=== PATIENT | male | born 1945 | race Caucasian/White ===

== ENCOUNTER 2021-08-02 07:22 | Inpatient (IN) | payer MEDICARE ==
[~2021-08-02] VITALS: Ht 167.6 cm; Wt 53.1 kg
--- NOTE | 2021-08-02 07:22 | NUR ---
PT BIBRA 79 FROM [facility] C/O SOB, LOW O2 SAT AT 80% RA AND LOW BLOOD SUGAR < 2OMG PER EMS. PT IS AAOX0, NOTED RESPIRATORY DISTRESS ON NON RB AT 15LPM, HOOKED TO MANAGER COMMUNICATION, KEPT RESTED AND COMFORTABLE. WILL CONTINUE TO MONITOR.
--- NOTE | 2021-08-02 07:25 | NUR ---
AT BEDSIDE FOR EVAL.
--- NOTE | 2021-08-02 07:30 | NUR ---
RT AT BEDSIDE FOR POSSIBLE INTUBATION.
--- NOTE | 2021-08-02 07:33 | NUR ---
IO ACCESS ESTABLISHED D50 GIVEN ORDERED BY .
[2021-08-02] MEDS ORDERED: DEXTROSE 50%-WATER 50 ML DISP.SYRIN ONE ×3 (07:36→07:56)
--- NOTE | 2021-08-02 07:38 | NUR ---
2ND D50 GIVEN ORDERED BY .
[2021-08-02] MEDS ORDERED: MORPHINE SULFATE INJ 2 MG/ML DISP.SYRIN ONE (07:45)
--- NOTE | 2021-08-02 07:55 | NUR ---
Cassi MORSE IV ACCESS ESTABLISHED BY .
--- NOTE | 2021-08-02 08:05 | NUR ---
3RD D50 GIVEN ORDERED BY .
[2021-08-02] MEDS ORDERED: SODIUM BICARBONATE SYR 50 MEQ/50 ML DISP.SYRIN ONE (08:11)
--- NOTE | 2021-08-02 08:14 | NUR ---
SODIUM BICARB 50mEq GIVEN ORDERED BY
[2021-08-02] MEDS ORDERED: IV NS 0.9% 1,000 ML BAG IV ONE (08:30)
[2021-08-02] MEDS ORDERED: SODIUM BICARBONATE SYR 50 MEQ/50 ML DISP.SYRIN IV ONE (08:30)
[2021-08-02] MEDS ORDERED: DEXTROSE 50%-WATER 50 ML DISP.SYRIN IV ONE ×3 (08:30)
[2021-08-02] MEDS ORDERED: MORPHINE SULFATE INJ 2 MG/ML DISP.SYRIN IV ONE (08:30)
[2021-08-02 08:34] LABS: BASOPHILS % (AUTO) 0.1 % (0.0-2.0); EOSINOPHILS % (AUTO) 0.2 % (0.0-6.0); HEMATOCRIT 21 % (39-51); HEMOGLOBIN 7.1 g/dL (13.5-17.5); LYMPHOCYTES # (AUTO) 0.3 K/uL (0.8-4.8); LYMPHOCYTES % (AUTO) 8.4 % (20.0-44.0); MEAN CORPUSCULAR HGB CONC 33 g/dl (31.0-36.0); MEAN CORPUSCULAR VOLUME 93 fL (80-96); MONOCYTES # (AUTO) 0.1 K/uL (0.1-1.30); MONOCYTES % (AUTO) 2.3 % (2.0-12.0); NEUTROPHILS # (AUTO) 3.6 K/uL (1.8-8.9); PLATELET COUNT (AUTO) 76 K/uL (150-450); RED BLOOD CELL COUNT(AUTO) 2.31 MIL/uL (4.5-6.0)
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
[2021-08-02 08:58] VITALS: BP 133/96
[2021-08-02 09:04] LABS: ALANINE AMINOTRANSFERASE 237 U/L (12-78); ASPARTATE AMINOTRANSFERASE 614 U/L (15-37); BILIRUBIN,DIRECT 0.4 mg/dL (0.0-0.2); BILIRUBIN,TOTAL 0.7 mg/dL (0.2-1.0); CALCIUM, SERUM 6.7 mg/dL (8.5-10.1); CARBON DIOXIDE 24 mmol/L (21-32); CHLORIDE 102 mmol/L (98-107); CREATININE 1.2 mg/dL (0.6-1.3); POTASSIUM 4.3 mmol/L (3.5-5.1); SODIUM SERUM 133 mmol/L (136-145); TOTAL PROTEIN, SERUM 3.3 g/dL (6.4-8.2); UREA NITROGEN, BLOOD 60 mg/dL (7-18)
--- NOTE | 2021-08-02 09:20 | NUR ---
RN NOTE PATIENT RECEIVED FROM ER, WILL CONTINUE PLAN OF CARE.
[2021-08-02 09:23] LABS: ALKALINE PHOSPHATASE 1013 U/L (46-116); LIPASE < 10 U/L (73-393)
[2021-08-02 09:25] LABS: ALBUMIN 1.4 g/dL (3.4-5.0); GLUCOSE 396 mg/dL (74-106)
[2021-08-02] MEDS ORDERED: ACETAMINOPHEN 325 MG TABLET PO PRN (09:30)
[2021-08-02] MEDS ORDERED: LORAZEPAM INJ 2 MG/ML VIAL IV PRN (09:30)
[2021-08-02] MEDS ORDERED: MORPHINE SULFATE PF DRIP 250 MG in IV D5W 240 ML IV PRN (09:30)
[2021-08-02] MEDS ORDERED: ZINC1CAP3 PO (09:40)
[2021-08-02] MEDS ORDERED: SENN8.6T19 PO (09:40)
[2021-08-02] MEDS ORDERED: LACT20SO4 PO (09:40)
[2021-08-02] MEDS ORDERED: HYDR4TAB57 PO (09:40)
[2021-08-02] MEDS ORDERED: MAGN400O6 PO (09:40)
[2021-08-02] MEDS ORDERED: FENT1PAT5 TP (09:40)
[2021-08-02] MEDS ORDERED: ASCO500C17 PO (09:40)
[2021-08-02] MEDS ORDERED: AMIN887L PO (09:40)
[2021-08-02] MEDS ORDERED: DOCU-141 PO (09:40)
[2021-08-02] MEDS ORDERED: MULT-188 PO (09:40)
[2021-08-02] MEDS ORDERED: NA P133E RC (09:40)
[2021-08-02] MEDS ORDERED: FERR325T23 PO (09:40)
[2021-08-02] MEDS ORDERED: ACET325T53 PO (09:40)
[2021-08-02 10:11] LABS: BAND % (MANUAL) 22 % (0.0-5.0); EOSINOPHILS % (MANUAL) 2 % (0-4); LYMPHOCYTES % (MANUAL) 11 % (16-48); MONOCYTES % (MANUAL) 2 % (0-11.0); NEUTROPHILS % (MANUAL) 63 (42-76)
[2021-08-02] MEDS ORDERED: KEY,NONCONTROL,TO KEEP IN PYXI 1 EA MC ONE (10:34)
--- NOTE | 2021-08-02 14:30 | NUR ---
SWAPNIL NOTE NOTIFIED ZAC BEY THAT PATIENT HAS NO PALPABLE PULSE, AND UNABLE TO OBTAIN VTS. Addendum: 08/02/21 at 1758 by JERROD CONN RN [id number] Addendum: 08/02/21 at 1758 by JERROD CONN RN ERROR
--- NOTE | 2021-08-02 16:28 | NUR ---
RN NOTE NOTIFIED ZAC BEY THAT PATIENT HAS NO PALPABLE PULSE, AND UNABLE TO OBTAIN VTS.
--- NOTE | 2021-08-02 16:29 | NUR ---
PATIENT NO VITAL SIGNS NO RESPONSE PRONOUNCED .
--- NOTE | 2021-08-02 16:47 | NUR ---
SWAPNIL NOTE CALLED ONE BRIDGER MONTE
== END 2021-08-02 17:37 | DRG 951 ==
LOC: ER 07:31 → TELE1 08:48
PROVIDERS: ADMIT Internal Medicine; ATTEND Nurse Practitioner Acute Care
DX: Z51.5 Encounter for palliative care (principal); G93.41 Metabolic encephalopathy; J96.01 Acute respiratory failure with hypoxia; E43 Unspecified severe protein-calorie malnutrition; C25.9 Malignant neoplasm of pancreas, unspecified; C79.9 Secondary malignant neoplasm of unspecified site; D61.818 Other pancytopenia; R64 Cachexia; Z68.1 Body mass index [BMI] 19.9 or less, adult; M84.48XA Pathological fracture, other site, initial encounter for fracture; E16.2 Hypoglycemia, unspecified; W19.XXXA Unspecified fall, initial encounter; Y93.9 Activity, unspecified; Y92.89 Other specified places as the place of occurrence of the external cause; Z20.822 Contact with and (suspected) exposure to COVID-19
CPT/HCPCS: 36415; 71045-TC; 80048-TC; 80076-TC; 82962-TC; 83690-TC; 84484-TC; 85025-TC; 85730-TC; 87081-TC; G0378; J2060; J2270; J2274; J3490; J7030; J7060; U0003